=== PATIENT | male | born 1945 | race Caucasian/White ===

== ENCOUNTER 2023-09-02 11:06 | Emergency (ER) | payer MEDICARE, OTHER, SELFPAY ==
[2023-09-02] VITALS (9 sets, daily range): BP systolic 140–180; BP diastolic 61–83; PULSE 62–75; RESP 14–26; TEMP 36.6; O2SAT 96–98; BMI 24.7
--- NOTE | 2023-09-02 11:14 | DI.RAD.S_ITS ---
PROCEDURE: XR ANKLE RT MIN 3V INDICATIONS: slip and fall TECHNIQUE: 3 views of the ankle were acquired. COMPARISON: None. FINDINGS: Bones: There is a moderately displaced intra-articular fracture of the medial malleolus. There is a comminuted, moderately displaced fracture of the distal tibia, which is best seen on the lateral view. The ankle mortise is subluxed laterally in relation to the tibial plafond. There is widening of the ankle mortise. The talar dome demonstrates no cherelle abnormality. Age-appropriate bony degenerative changes are seen. Soft tissues: No tibiotalar joint effusion. Achilles tendon appears normal. IMPRESSION: Moderately displaced fractures of the medial malleolus and distal tibia. There is widening of the ankle mortise and subluxation of the talar dome laterally in relation to the tibial plafond. Dictated by: Tripp Pillai M.D. on 09/02/2023 at 10:43 Approved by: Tripp Pillai M.D. on 09/02/2023 at 10:45
--- NOTE | 2023-09-02 11:42 | ED.FALL ---
HPI - Fall General Chief Complaint: Fall Stated Complaint: Slipped Time Seen by Provider: 09/02/23 11:27 Source: patient and EMS Mode of arrival: EMS Limitations: no limitations History of Present Illness HPI Narrative: Patient is a 78-year-old male. Not on anticoagulation. Here by EMS for evaluation of a right ankle injury. Patient states he was at his normal state of health. Walking down somewhat of a steep incline in order to go to the [facility] edge when he states he stepped on a rock. The rock was deeper than what he thought and he twisted his ankle and fell. He did receive some pain medication by EMS prior to arrival. He did arrive in a air vacuum splint. No other injuries from the event. Related Data Home Medications Medication Instructions Recorded Confirmed lisinopril 10 mg tablet 15 mg PO DAILY 09/02/23 09/02/23 pravastatin 20 mg tablet 20 mg PO DAILY 09/02/23 09/02/23 Previous Rx's Medication Instructions Recorded hydrocodone 5 mg-acetaminophen 325 1 tab PO Q8H PRN pain #20 tabs 09/02/23 mg tablet Allergies Allergy/AdvReac Type Severity Reaction Status Date / Time No Known Drug Allergies Allergy Verified 09/02/23 11:27 Review of Systems Constitutional Constitutional: Reports system reviewed and no additional complaints, except as documented Musculoskeletal Musculoskeletal: Reports system reviewed and no additional complaints, except as documented Integumentary/Breasts Skin/Breast: Reports system reviewed and no additional complaints, except as documented Patient History Social History Smoking Status: Former smoker Smoking Status: Former smoker tobacco type: cigarettes alcohol intake frequency: 0-2 drinks per day Substance Use Type: does not use Exam Initial Vital Signs Initial Vital Signs: Vital Signs Temperature 97.8 F 09/02/23 11:15 Pulse Rate 67 09/02/23 11:15 Respiratory Rate 16 09/02/23 11:15 Blood Pressure 156/77 H 09/02/23 11:15 Pulse Oximetry 97 09/02/23 11:15 Oxygen Delivery Method Room Air 09/02/23 11:15 HENMT Head: normal to inspection and normocephalic Resp Effort & Inspection: normal respiratory effort Cardio Pulses: dorsalis pedis present on the right Skin Other: Small superficial abrasion to the anterior/medial aspect of the right ankle. Extrem Other: Valgus deformities of the right ankle Procedures Orthopedic Splinting/Casting Injury #1: Side: right Lower Extremity Injury Location: ankle Lower Extremity Immobilizer: posterior splint and stirrup splint Other Orthopedic Equipment: crutches Post splinting neuro exam: no change Post splinting vascular exam: no change Placed by: Provider Course Orders Ordered: ED Orders 09/02/23 11:14 XR ankle RT min 3V Stat Discontinued Medications Hydromorphone HCl (Hydromorphone 1 Mg Inj) 1 mg IV NOW ONE Stop: 09/02/23 11:44 Last Admin: 09/02/23 11:56 Dose: 1 mg Documented By: VIKTORIYA Vital Signs Vital signs: Vital Signs - 8 hr 09/02/23 11:15 Temperature 97.8 F Pulse Rate 67 Respiratory Rate 16 Blood Pressure 156/77 H Pulse Oximetry 97 Oxygen Delivery Method Room Air MDM - Fall Imaging Data Extremity x-ray #1: Radiologist's Impression: PROCEDURE: XR ANKLE RT MIN 3V INDICATIONS: slip and fall TECHNIQUE: 3 views of the ankle were acquired. COMPARISON: None. FINDINGS: Bones: There is a moderately displaced intra-articular fracture of the medial malleolus. There is a comminuted, moderately displaced fracture of the distal tibia, which is best seen on the lateral view. The ankle mortise is subluxed laterally in relation to the tibial plafond. There is widening of the ankle mortise. The talar dome demonstrates no cherelle abnormality. Age-appropriate bony degenerative changes are seen. Soft tissues: No tibiotalar joint effusion. Achilles tendon appears normal. IMPRESSION: Moderately displaced fractures of the medial malleolus and distal tibia. There is widening of the ankle mortise and subluxation of the talar dome laterally in relation to the tibial plafond. [facility] Narrative Medical decision making narrative: He was neurovascularly intact. The small skin abrasion was just covered with a Vaseline gauze. The splint was placed as described above. Patient tolerated the procedure well. He was given a copy of his imaging studies on a CD as he was not from the local area. We discussed his injury today. Discussed the importance of following up with Orthopedic surgery. He was given return precautions and follow-up instructions. He expressed understanding agreement Discharge Plan Departure Patient Disposition: Home Clinical Impression: Ankle fracture, right Instructions: How to Use Crutches, DI for Ankle Fracture, How to Take Care of Your Splint Activity Restrictions/Additional Instructions: The splint that was placed today needs to be treated like a cast. You need to keep it on and keep it clean and keep it dry. Also keep your leg elevated. Do not walk on your right leg. Please use the crutches. You were going to need follow-up with an orthopedic surgeon. You can contact the orthopedic surgeon at the number provided below here in the local area or when you return home. Return to the emergency department for new symptoms. Prescriptions: New hydrocodone-acetaminophen 5-325 mg tablet 1 tab PO Q8H PRN (Reason: pain) Qty: 20 0RF No Action lisinopril 10 mg Tablet 15 mg PO DAILY pravastatin 20 mg Tablet 20 mg PO DAILY Referrals: Randi Vazquez MD [Physician] - Stand Alone Forms: Patient Portal/API
[2023-09-02] MEDS: HYDROMORPHONE 1 MG INJ IV ×2 (11:56→13:41)
== END 2023-09-02 14:07 | disposition home or self-care (01) ==
PROVIDERS: Emergency Provider Emergency Medicine
DX: S82.51XA Displaced fracture of medial malleolus of right tibia, initial encounter for closed fracture (principal); W01.0XXA Fall on same level from slipping, tripping and stumbling without subsequent striking against object, initial encounter
CPT/HCPCS: 29515; 73610; 96374; 96376; 99283; 99284; J1170